=== PATIENT | male | born 1990 | race Caucasian/White ===

== ENCOUNTER 2022-03-20 15:04 | Emergency (ER) | payer OTHER ==
--- NOTE | 2022-03-20 15:10 | ERPHSYRPT ---
- History of Present Illness Time Seen by Provider: 03/20/22 15:10 Source: patient, family Exam Limitations: no limitations Physician History: This is a 31-year-old white male who is right-handed and was working on removing a bolt from an item and did not have the appropriate tools. He suffered a small (3 to 4 mm) dorsal laceration/deep abrasion to his second digit knuckle. This occurred 2 weeks ago. He came to visit his brother and his brother saw the site and made the patient come to the hospital. Patient did not want to come. Patient states that his tetanus status is not up-to-date. Patient is adamant that he does not want the area cut at this time. He just wants antibiotics. Timing/Duration: week(s) (2) Quality: painful (To moderate) Severity: mild Location: hands (Right index finger) Associated Symptoms: swelling/mass/lumps (Right index finger) Allergies/Adverse Reactions: No Known Drug Allergies Allergy (Verified 03/20/22 15:27) Travel Risk - International Travel Have you traveled outside of the country in past 3 weeks: No - Coronavirus Screening Are you exhibiting any of the following symptoms?: No Close contact with a COVID-19 positive Pt in past 14-21 Days: No - Review of Systems Constitutional: No Symptoms Eyes: No Symptoms Ears, Nose, & Throat: No Symptoms Respiratory: No Symptoms Cardiac: No Symptoms Abdominal/Gastrointestinal: No Symptoms Genitourinary Symptoms: No Symptoms Musculoskeletal: Injury (Right index finger) Skin: Cellulitis (Right index finger swollen) Neurological: No Symptoms Psychological: No Symptoms Endocrine: No Symptoms Hematologic/Lymphatic: No Symptoms Immunological/Allergic: No Symptoms All Other Systems: Reviewed and Negative - Past Medical History Pertinent Past Medical History: No - Past Surgical History Past Surgical History: No - Nursing Vital Signs Nursing Vital Signs: Initial Vital Signs Temperature 97.3 F 03/20/22 15:15 Pulse Rate 73 03/20/22 15:15 Respiratory Rate 17 03/20/22 15:15 Blood Pressure 180/78 03/20/22 15:15 O2 Sat by Pulse Oximetry 100 03/20/22 15:15 Pain Scale Pain Intensity 2 - Physical Exam General Appearance: no apparent distress, alert, anxiety Eye Exam: PERRL/EOMI, eyes nml inspection Ears, Nose, Throat Exam: normal ENT inspection, moist mucous membranes Neck Exam: normal inspection, non-tender, supple, full range of motion Respiratory Exam: airway intact, No chest tenderness, No respiratory distress Gastrointestinal/Abdomen Exam: No tenderness Rectal Exam: not done Back Exam: normal inspection, normal range of motion, No CVA tenderness, No vertebral tenderness Extremity Exam: limited range of motion (Right index finger), swelling (Right index finger), tenderness (Right index finger), other (No palpable pus present. Only mild localized redness at the dorsal second digit abrasion site. No expressible pus) Neurologic Exam: alert, oriented x 3, cooperative, clinical analyst II-XII nml as tested, normal mood/affect, nml cerebellar function, nml station & gait, sensation nml Skin Exam: other (Cellulitis right index finger with swelling) Lymphatic Exam: No adenopathy SpO2 Interpretation: normal O2 Delivery: Room Air - Course Nursing assessment & vital signs reviewed: Yes Ordered Tests: Medication Summary Discontinued Medications Generic Name Dose Route Start Last Admin Trade Name Dejuanq PRN Reason Stop Dose Admin Ceftriaxone Sodium 1,000 mg 03/20/22 15:20 Ceftriaxone Sodium 1000 Mg Inj Vial IM 03/20/22 15:21 STAT ONE Levofloxacin 500 mg 03/20/22 15:20 Levofloxacin 500 Mg Tablet PO 03/20/22 15:21 STAT ONE - Progress Progress: unchanged Progress Note: 03/20/22 15:36 Patient is only wanting antibiotics. He does not want an incision and drainage of anything at this point. I did have a discussion and we agreed that the patient would receive a tetanus injection as well as return to the emergency department tomorrow morning before noon. Patient's brother states that he will return for reevaluation Counseled pt/family regarding: diagnosis, need for follow-up - Departure Departure Disposition: Home Clinical Impression: Cellulitis of finger of right hand Condition: Stable Critical Care Time: No Additional Instructions: Soak the right hand/index finger in warm soapy water alternate with warm Epson salt every 3-4 hours while awake. Return tomorrow morning for reevaluation. Take your antibiotics as prescribed. Use Tylenol and ibuprofen for pain control. Prescriptions: Smz/Tmp Ds Tablet [Bactrim Ds Tablet] 1 udtab PO BID #14 tablet
[2022-03-20] MEDS ORDERED: Levofloxacin 500 MG Tablet PO ONE (15:20)
[2022-03-20] MEDS ORDERED: Rocephin 1000 MG INJ IM ONE (15:20)
[2022-03-20 15:28] VITALS: BP 180/78; PULSE 73; O2SAT 100
[2022-03-20] MEDS ORDERED: Levofloxacin 500 MG Tablet ONE (15:29)
[2022-03-20] MEDS ORDERED: Rocephin 1000 MG INJ ONE (15:29)
[2022-03-20] MEDS ORDERED: Adacel Vial IM ONE ×2 (15:39→15:41)
== END 2022-03-20 15:58 | disposition home or self-care (01) ==
LOC: ED 15:04
DX: L03.011 Cellulitis of right finger (principal)
CPT/HCPCS: 90471; 90715; 96372; 99283; J0696; A9270-GY

== ENCOUNTER 2023-02-28 16:56 | Emergency (ER) | payer OTHER ==
--- NOTE | 2023-02-28 17:09 | ERPHSYRPT ---
- History of Present Illness Time Seen by Provider: 02/28/23 17:02 Source: patient Exam Limitations: no limitations Physician History: 32-year-old male [id number] presented in the ER with chief complaint of laceration right distal forearm radial aspect almost 40 minutes prior to arrival while he was changing a window with broken glass and accidentally got lace ration. Patient reports active spurting of blood and tourniquet applied with moderate intensity sharp pain. Tourniquet is applied prior to arrival. There is 1.25 cm laceration with no active spurting. Tourniquet is loosened and noticed active spurting in the radial artery area. Patient has intact range of motion at the right hand [facility]. Tourniquet is reapplied. I have called the transfer center at [facility] at 1700, vascular surgery recommended transfer to higher level of care. Will call [facility] transfer center. Allergies/Adverse Reactions: cefaclor [From [facility]] Allergy (Verified 02/28/23 16:59) Home Medications: No Reportable Medications [No Reported Medications] 02/28/23 [History] Hx Tetanus, Diphtheria Vaccination/Date Given: No (Not tetanus) Hx Influenza Vaccination/Date Given: No Hx Pneumococcal Vaccination/Date Given: No Travel Risk - Vaccine Status Have you recieved a Covid-19 vaccination: Yes Fuel Agent: DragonWave - Review of Systems Constitutional: No Symptoms Eyes: No Symptoms Ears, Nose, & Throat: No Symptoms Respiratory: No Symptoms Abdominal/Gastrointestinal: No Symptoms Musculoskeletal: Injury Skin: Skin Lesions Neurological: No Symptoms Hematologic/Lymphatic: No Symptoms Immunological/Allergic: No Symptoms - Past Medical History Pertinent Past Medical History: No - Past Surgical History Past Surgical History: No - Social History Smoking Status: Current every day smoker How long have you smoked: 10 years Exposure to second hand smoke: No Drug Use: none - Nursing Vital Signs Nursing Vital Signs: Initial Vital Signs Temperature 97.0 F 02/28/23 16:59 Pulse Rate 70 02/28/23 16:59 Respiratory Rate 20 02/28/23 16:59 Blood Pressure 146/106 02/28/23 16:59 O2 Sat by Pulse Oximetry 99 02/28/23 16:59 Pain Scale Pain Intensity 0 - Physical Exam General Appearance: no apparent distress, alert Ears, Nose, Throat Exam: normal ENT inspection Neck Exam: normal inspection, full range of motion Respiratory Exam: normal breath sounds, lungs clear Cardiovascular Exam: regular rate/rhythm, normal heart sounds Gastrointestinal/Abdomen Exam: soft, normal bowel sounds, No tenderness Extremity Exam: other (1.5 cm laceration right distal forearm with active spurting. Intact range of motion at the wrist/fingers.) Neurologic Exam: alert, oriented x 3, cooperative Skin Exam: normal color SpO2 Interpretation: normal SpO2: 96 O2 Delivery: Room Air Ordered Tests: Active Orders 24 hr Category Date Time Status CBC W DIFF Stat Lab 02/28/23 17:05 Completed Medication Summary Generic Name Dose Route Start Last Admin Trade Name Freq PRN Reason Stop Dose Admin Sodium Chloride 1,000 mls @ 999 mls/hr 02/28/23 18:13 02/28/23 18:14 Sodium Chloride 0.9% 1000 Ml IV 02/28/23 19:13 999 mls/hr .Q1H1M STA Administration Discontinued Medications Generic Name Dose Route Start Last Admin Trade Name Freq PRN Reason Stop Dose Admin Diphtheria/Tetanus/Acell Pertussis 0.5 ml 02/28/23 17:16 02/28/23 17:43 Tdap --Diph,Pertuss(Acell),Tet Vac/Pf 0.5 Ml Vial IM 02/28/23 17:17 Not Given .ONCE ONE Fentanyl Citrate 50 mcg 02/28/23 17:16 02/28/23 17:32 Fentanyl Citrate 100 Mcg/2 Ml* Vial IV 02/28/23 17:17 25 mcg STAT ONE Administration Fentanyl Citrate Confirm 02/28/23 17:25 Fentanyl Citrate 100 Mcg/2 Ml* Vial Administered 02/28/23 17:26 Dose 100 mcg .ROUTE .STK-MED ONE Sodium Chloride 1,000 mls @ 999 mls/hr 02/28/23 17:14 02/28/23 17:30 Sodium Chloride 0.9% 1000 Ml IV 02/28/23 18:14 999 mls/hr .Q1H1M STA Administration Clindamycin HCl/Dextrose 600 mg in 50 mls @ 100 mls/hr 02/28/23 17:15 02/28/23 18:10 Clindamycin-D5w 600 Mg/50 Ml IV 02/28/23 17:44 Infused STAT STA Infusion Sodium Chloride Confirm 02/28/23 17:26 Sodium Chloride 0.9% 1000 Ml Administered 02/28/23 17:27 Dose 1,000 mls @ ud .ROUTE .STK-MED ONE Clindamycin HCl/Dextrose Confirm 02/28/23 17:27 Clindamycin-D5w 600 Mg/50 Ml Administered 02/28/23 17:28 Dose 600 mg in 50 mls @ ud IV .STK-MED ONE Sodium Chloride Confirm 02/28/23 18:12 Sodium Chloride 0.9% 1000 Ml Administered 02/28/23 18:13 Dose 1,000 mls @ ud .ROUTE .STK-MED ONE Ondansetron HCl 4 mg 02/28/23 17:16 02/28/23 17:31 Ondansetron Hcl 4 Mg/2 Ml Vial IV 02/28/23 17:17 4 mg STAT ONE Administration Ondansetron HCl Confirm 02/28/23 17:25 Ondansetron Hcl 4 Mg/2 Ml Vial Administered 02/28/23 17:26 Dose 4 mg .ROUTE .STK-MED ONE Lab/Rad Data: Laboratory Result Diagrams 02/28/23 17:05 Laboratory Results 02/28/23 02/28/23 Range/Units 17:05 17:05 WBC 9.3 (4.0-10.5) x10^3/uL RBC 4.54 (4.1-5.6) x10^6/uL Hgb 13.4 (12.5-18.0) g/dL Hct 41.6 L (42-50) % MCV 91.6 (78-100) fL MCH 29.5 (26-32) pg MCHC 32.2 (32-36) g/dL RDW 12.9 (11.5-14.0) % Plt Count 349 (150-450) x10^3/uL MPV 8.9 (7.5-11.0) fL Gran % 58.1 (36.0-66.0) % Immature Gran % (Auto) 0.3 (0.00-0.4) % Nucleat RBC Rel Count 0.0 (0.00-0.1) % Eos # (Auto) 0.04 (0-0.5) x10^3/uL Immature Gran # (Auto) 0.03 (0.00-0.03) x10^3u/L Absolute Lymphs (auto) 2.69 (1.0-4.6) x10^3/uL Absolute Monos (auto) 1.08 (0.0-1.3) x10^3/uL Absolute Nucleated RBC 0.00 (0.00-0.01) x10^3u/L Lymphocytes % 29.0 (24.0-44.0) % Monocytes % 11.6 (0.0-12.0) % Eosinophils % 0.4 (0.00-5.0) % Basophils % 0.6 (0.0-0.4) % Absolute Granulocytes 5.39 (1.4-6.9) x10^3/uL Basophils # 0.06 (0-0.4) x10^3/uL ABO Group O Rh Factor POSITIVE Antibody Screen NEGATIVE (NEGATIVE) - Progress Progress: unchanged Progress Note: 02/28/23 17:09 32-year-old male [id number] presented in the ER with chief complaint of laceration right distal forearm radial aspect almost 40 minutes prior to arrival while he was changing a window with broken glass and accidentally got laceration. Patient reports active spurting of blood and tourniquet applied with moderate intensity sharp pain. Tourniquet is applied prior to arrival. There is 1.25 cm laceration with no active spurting. Tourniquet is loosened and noticed active spurting in the radial artery area. Patient has intact range of motion at the right hand [place]. Tourniquet is reapplied. I have called the transfer center at [facility] at 1700, vascular surgery recommended transfer to higher level of care. Will call transfer center. 02/28/23 17:13 transfer center is called, case reviewed and patient is excepted on behalf of Drs. Gibson Stiles at [facility]. I have discussed plan with patient which she understand and agrees. He is given a dose of antibiotics and updated his t etanus. 02/28/23 18:28 Patient tourniquet was released for 10 minutes x 2 during whole stay in the ER with firm pressure on the site of laceration to make sure patient is perfusing okay. Patient is transferred by air [facility]. Counseled pt/family regarding: lab results, diagnosis, need for follow-up Medical Desision Making - Discussion of managment Care discussed with:: on-call "doc" ([facility] Gibson Stiles md) Reviewed:: Need for additional workup Will see patient: in ED - Risk of complications The pt has a high risk of morbidity or mortality based on: Need for emergency major surgery - Departure Departure Disposition: Transfer Clinical Impression: Laceration of radial artery at forearm level Qualifiers: Encounter type: initial encounter Laterality: right Qualified Code(s): S55.111A - Laceration of radial artery at forearm level, right arm, initial encounter Condition: Stable Critical Care Time: Yes Critical Care Time(excluding separately billable procedures): Critical 30-74 mins Referrals: DOCTOR,NO FAMILY [Primary Care Provider] - Follow up/PCP as directed
[2023-02-28] MEDS ORDERED: Sodium Chloride 0.9% 1000 ML 1,000 ML IV STA ×2 (17:14→18:13)
[2023-02-28 17:15] VITALS: TEMP 97
[2023-02-28] MEDS ORDERED: CLINDAMYCIN-D5W 600 MG/50 ML*** 600 MG/50 ML BAG IV STA (17:15)
[2023-02-28] MEDS ORDERED: Zofran 4 MG/2 ML VIAL IV ONE (17:16)
[2023-02-28] MEDS ORDERED: SUBLIMAZE 100 MCG/2 ML IV ONE (17:16)
[2023-02-28] MEDS ORDERED: Adacel Vial IM ONE (17:16)
[2023-02-28 17:24] LABS: Absolute Neutrophil Ct (ANC) 5.39 x10^3/uL (1.4-6.9); BASOPHIL % 0.6 % (0.0-0.4); Basophil (Absolute #) 0.06 x10^3/uL (0-0.4); Eosinophil % 0.4 % (0.00-5.0); Eosinophil (Absolute #) 0.04 x10^3/uL (0-0.5); Hematocrit 41.6 % (42-50); Hemoglobin 13.4 g/dL (12.5-18.0); IMMATURE GRAN # 0.03 x10^3u/L (0.00-0.03); IMMATURE GRAN % 0.3 % (0.00-0.4); Lymphocyte (Absolute #) 2.69 x10^3/uL (1.0-4.6); Mean Cell Volume 91.6 fL (78-100); Mean Corpuscular Hemoglobin 29.5 pg (26-32); Mean Corpuscular Hgb Concent. 32.2 g/dL (32-36); Mean Platelet Volume 8.9 fL (7.5-11.0); Monocyte (Absolute #) 1.08 x10^3/uL (0.0-1.3); Monocytes % 11.6 % (0.0-12.0); Neutrophil % 58.1 % (36.0-66.0); Platelet Count 349 x10^3/uL (150-450); Red Blood Count 4.54 x10^6/uL (4.1-5.6); Red Cell Distribution Width 12.9 % (11.5-14.0); White Blood Count 9.3 x10^3/uL (4.0-10.5)
[2023-02-28] MEDS ORDERED: Zofran 4 MG/2 ML VIAL ONE (17:25)
[2023-02-28] MEDS ORDERED: SUBLIMAZE 100 MCG/2 ML ONE (17:25)
[2023-02-28] MEDS ORDERED: Sodium Chloride 0.9% 1000 ML 1,000 ML ONE ×2 (17:26→18:12)
[2023-02-28] MEDS ORDERED: CLINDAMYCIN-D5W 600 MG/50 ML*** 600 MG/50 ML BAG IV ONE (17:27)
[2023-02-28 17:43] VITALS: BP 145/102; PULSE 61; RESP 21
[2023-02-28 18:06] LABS: ABO TYPING O; Antibody Screen NEGATIVE (NEGATIVE); RH TYPING POSITIVE
[2023-02-28 18:30] VITALS: O2SAT 96
== END 2023-02-28 18:41 | disposition short-term general hospital (02) ==
LOC: ED 16:56
DX: S55.111A Laceration of radial artery at forearm level, right arm, initial encounter (principal); S51.811A Laceration without foreign body of right forearm, initial encounter; W25.XXXA Contact with sharp glass, initial encounter; Z72.0 Tobacco use
CPT/HCPCS: 36000; 36415; 85025; 86850; 86900; 86901; 96360; 96361; 96365; 96367; 96374; 96375; 99285; 99291; J2405; J3010